=== PATIENT | female | born 1965 | race Caucasian/White ===

== ENCOUNTER 2019-03-05 07:46 | Day surgery (SDC) | payer OTHER ==
[2019-03-03 12:22] VITALS: BMI 23.6
[~2019-03-05 07:46] MED LIST: BUPIVACAINE HCL/PF 0.25% (2.5MG/ML) 10 ML VIAL IJ ONE
--- NOTE | 2019-03-05 09:14 | OP ---
Operative Note - Note: Operative Date: 03/05/19 Pre-Operative Diagnosis: Left medial meniscus tear Operation: Left knee arthroscopy with partial medial meniscectomy Post-Operative Diagnosis: Same as Pre-op Surgeon: Karlos Monet Chemistry Laboratory Technician: Ronna Rascon Anesthesiologist/OFFICE TECHNOLOGIST: Ramona Moeller Anesthesia: General Operative Report Dictated: Yes
[2019-03-05] MEDS ORDERED: MIDAZOLAM HCL 2 MG/2 ML SINGLE DOSE VIAL ONE ×2 (10:03→10:41)
[2019-03-05] MEDS ORDERED: BUPIVACAINE HCL 0.25% 125 MG/50 ML VIAL ONE (10:26)
[2019-03-05] MEDS ORDERED: BUPIVACAINE HCL/PF 0.25% (2.5MG/ML) 10 ML VIAL IJ ONE (11:21)
[2019-03-05] MEDS ORDERED: ONDANSETRON 4 MG/2 ML VIAL ONE (11:56)
[2019-03-05] MEDS ORDERED: oxyCODONE HCL 5 MG TABLET PO PRN (12:03)
[2019-03-05] MEDS ORDERED: LACTATED RINGERS SOLUTION 1,000 ML IV SCH (12:15)
[2019-03-05 13:18] VITALS: BP 141/67; PULSE 69; TEMP 98.3
[2019-03-05] MEDS ORDERED: ONDANSETRON 4 MG/2 ML VIAL IVPUSH PRN (15:23)
--- NOTE | 2019-03-05 20:58 | OP ---
DATE OF OPERATION: 03/05/2019 PREOPERATIVE DIAGNOSIS: Left medial meniscal tear. POSTOPERATIVE DIAGNOSIS: Left medial meniscal tear. PROCEDURE: Left knee arthroscopy with partial medial meniscectomy. SURGEON: Karlos Graff MD DEMAND PLANNER: FARA Smith ANESTHESIA: General. POSTOPERATIVE CONDITION: Stable. COMPLICATIONS: None. INDICATIONS: This is a pleasant 53-year-old female who has been suffering from medial knee pain. MRI demonstrated medial meniscal tear. Treatment options including nonoperative versus operative management was reviewed. Operative risks were reviewed in detail, including bleeding, infection, neurovascular injury, need for further surgery, postoperative pain and stiffness, progression of osteoarthritis. We discussed medical risks such as heart attack, stroke, DVT, PE, and . I addressed the use of perioperative antibiotic and DVT prophylaxis. I addressed all the patient's questions and concerns. We reviewed the postoperative rehabilitation protocol. She voiced understanding and elected to proceed. PROCEDURE: The patient was brought to the operating room, where general anesthetic was administered. The left lower extremity was then prepped and draped in the usual sterile fashion. A preoperative dose of antibiotics was given and the usual timeout procedure was performed. The knee was then marked out. The portal sites were injected subcutaneously with 0.25% Marcaine. A lateral portal was now established. Examination of the patellofemoral joint demonstrated mild articular wear. Passing the arthroscope into the notch demonstrated intact ACL and PCL. The arthroscope was then passed in the medial compartment. Here, a medial portal was established under spinal needle localization. The medial meniscus was examined, demonstrating a large undersurface tear involving most of the posterior horn and extending into the body. Utilizing a combination of meniscal biter and a shaver, this was debrided down to a stable base. There was only mild superficial cartilage wear on the medial compartment. Passing the arthroscope into the lateral compartment, the lateral meniscus again. There was some very slight free edge tearing, however, no significant tearing was noted of the lateral meniscus. The articular surfaces demonstrated only some mild articular wear. At this point, the excess fluid was withdrawn from the joint. The portals were sutured using 3-0 nylon. A sterile dressing was placed. The patient was extubated and transferred to the recovery room in stable condition. AKRLOS GRAFF M.D. CADE/[id number]
== END 2019-03-05 13:15 | disposition home or self-care (01) ==
LOC: FASU 07:46
PROVIDERS: ATTEND Orthopaedic Surgery Sports Medicine
PROC: 0SBD4ZZ Excision of Left Knee Joint, Percutaneous Endoscopic Approach (ICD-10-PCS; principal; 2019-03-05 11:03)
DX: S83.242A Other tear of medial meniscus, current injury, left knee, initial encounter (principal); X58.XXXA Exposure to other specified factors, initial encounter; Y93.89 Activity, other specified; Y92.89 Other specified places as the place of occurrence of the external cause
CPT/HCPCS: 94760